=== PATIENT | male | born 1970 | race Caucasian/White ===

== ENCOUNTER 2024-03-20 04:22 | Day surgery (SDC) | payer OTHER ==
[2024-03-17 10:46] VITALS: BMI 32.5
[2024-03-20] MEDS ORDERED: VANCOMYCIN 1,000 MG VIAL (RESTRICTED TO ID ONLY) ONE ×2 (07:26→08:19)
[2024-03-20] MEDS ORDERED: GENTAMICIN SO4 80 MG/2 ML VIAL ONE ×2 (07:27→08:16)
[2024-03-20] MEDS ORDERED: MIDAZOLAM HCL 2 MG/2 ML SINGLE DOSE VIAL ONE (07:47)
[2024-03-20] MEDS ORDERED: PROPOFOL 20 ML ONE (07:48)
[2024-03-20] MEDS: VANCOMYCIN 1,000 MG VIAL (RESTRICTED TO ID ONLY) IVPB ONE (08:10)
[2024-03-20] MEDS: GENTAMICIN SO4 80 MG/2 ML VIAL IVPB ONE (08:10)
[2024-03-20] MEDS ORDERED: ONDANSETRON 4 MG/2 ML VIAL ONE (08:19)
[2024-03-20] MEDS ORDERED: DEXAMETHASONE SOD PHOSPHATE 4 MG/1 ML VIAL ONE (08:19)
[2024-03-20] MEDS ORDERED: oxyCODONE HCL 5 MG TABLET PO PRN (10:45)
[2024-03-20] MEDS ORDERED: LACTATED RINGERS SOLUTION 1,000 ML IV SCH (10:45)
[2024-03-20] MEDS ORDERED: ONDANSETRON 4 MG/2 ML VIAL IVPUSH PRN (10:45)
[2024-03-20 11:21] VITALS: RESP 18
[2024-03-20 14:01] VITALS: BP 115/63; PULSE 86; TEMP 97.7
== END 2024-03-20 14:03 | disposition home or self-care (01) ==
LOC: JASU-SURG 04:22
PROVIDERS: ATTEND Urology
PROC: 0VUS0JZ Supplement Penis with Synthetic Substitute, Open Approach (ICD-10-PCS; principal; 2024-03-20 08:00)
DX: N52.9 Male erectile dysfunction, unspecified (principal)
CPT/HCPCS: 54405; C1813; 82962; 94760